=== PATIENT | female | born 1965 | race Caucasian/White ===

== ENCOUNTER → 2019-12-13 17:15 | Outpatient (CLI) | payer OTHER, SELFPAY | PROVIDERS: Visit Provider Nurse Practitioner Family | DX: N39.0 Urinary tract infection, site not specified (principal) | CPT/HCPCS: 87086; 87088; 87186 ==

== ENCOUNTER 2020-10-17 10:56 | Emergency (ER) | payer OTHER, SELFPAY ==
[2020-10-17 10:57] VITALS: BP 138/98; PULSE 83; RESP 18; TEMP 36.9; O2SAT 100; BMI 40.0
[2020-10-17 11:20] VITALS: BP 138/98; PULSE 85; O2SAT 100
[2020-10-17 11:45] VITALS: BP 143/89; PULSE 77; O2SAT 98
--- NOTE | 2020-10-17 11:45 | CT_ITS ---
PROCEDURE: CT ABDOMEN PELVIS WO CON CLINICAL INDICATION: Right flank pain COMPARISON: No exams were available for comparison TECHNIQUE: Axial images obtained with sagittal and coronal reformats. All CT scans at the facility use one or more dose reduction, viz: automated exposure control, ma/kV adjustment per patient size (including targeted exams where dose is matched to indication, i.e. head), or iterative reconstruction technique. FINDINGS: LOWER THORAX: No acute finding ABDOMEN & PELVIS: The liver, spleen, gallbladder, adrenal glands, and pancreas have an unremarkable appearance. No renal or ureteral calculi. No hydronephrosis. No intestinal obstruction or free air. No evidence of appendicitis or diverticulitis. There are some nondistended fluid-filled loops of small bowel. There has been a prior hysterectomy. There is some thickening of the subcutaneous tissues in the right lower quadrant possibly due to recent injections. Prior kyphoplasty at L1 with loss of height anteriorly of 25 percent without retropulsion. IMPRESSION: No acute intra-abdominal or pelvic findings. Dictated by: Mingo Gimenez MD 10/17/2020 12:24 Mingo Gimenez MD in [place] 10/17/2020 12:24
[2020-10-17 12:01] VITALS: BP 132/78
--- NOTE | 2020-10-17 14:36 | HMH.EDGENADL ---
ED Disposition Clinical Impression: Right flank pain Disposition: Home, Self-Care Condition on Discharge: Good Prescriptions: methocarbamoL [Methocarbamol 500mg Tablet] 1,000 mg PO TID 30 Days #30 tab Transmission Status: Received by [id number] Referrals: Vazquez Choi MD [Primary Care Provider] - - Critical Care Critical Care Time: No Attestation: On 10/17/20, the high probability of a clinically significant, sudden or life threatening deterioration of the following system(s) required my full and direct attention, intervention and personal management. The time I documented below is in addition to time spent performing reported procedures but includes the following listed in this critical care notation. Medical Decision Making - Medical Records Medical records reviewed: Yes: I reviewed the patient's medical records. - [place] Inquiry Pt receiving controlled substance: No Vital Signs: 10/17/20 10:57 10/17/20 11:20 10/17/20 11:45 Temperature 98.4 F Temperature Source Oral Pulse Rate 85 77 Pulse Rate [Right Radial] 83 Respiratory Rate 18 Blood Pressure 138/98 H 143/89 H Blood Pressure [Right Arm] 138/98 H Blood Pressure Mean Blood Pressure Mean [Right Arm] 111 Blood Pressure Source Blood Pressure Source [Right Arm] Automatic Cuff Blood Pressure Position Blood Pressure Position [Right Arm] Sitting 02 Sat by Pulse Oximetry 100 100 98 Oxygen Delivery Method Room Air 10/17/20 12:01 10/17/20 14:59 Temperature 98.4 F Temperature Source Oral Pulse Rate 71 Pulse Rate [Right Radial] Respiratory Rate 18 Blood Pressure 132/78 140/71 Blood Pressure [Right Arm] Blood Pressure Mean 96 Blood Pressure Mean [Right Arm] Blood Pressure Source Automatic Cuff Blood Pressure Source [Right Arm] Blood Pressure Position Sitting Blood Pressure Position [Right Arm] 02 Sat by Pulse Oximetry Oxygen Delivery Method Room Air Orders (Tests/Meds): ED MEDICATIONS Discontinued Medications Generic Name Dose Route Start Last Admin Trade Name Freq PRN Reason Stop Dose Admin Oxycodone HCl 5 mg 10/17/20 11:45 Oxycodone 5mg Immediate Release Tablet PO 11/16/20 11:44 Q4HP PRN Severe Pain Medical Decision Narrative: Pt to the ED today for further evaluation of right sided flank pain. DDx includes cholycystitis, UTI, pyelo, post traumatic pain, shingles, MSK pain. Pt is well appearing on initial eval with no evidence of peritonism and no lower abdominal or suprapubic pain. No CVA tenderness and no rash consistent with shingles. CT stone protocol ordered. On radiologist interperitation of the film there is no evidence of nephrolithiasis, although they did note a small area of subcutaneous stranding consistent with injections which the patient does not take. This could represent some bruising under the skin or less likely infection, but there really is nothing on exam to account for that. Pt could be also having post traumatic pain or spinal nerve root compression as her pain does seem to line up with a dermatomal pattern. I have given 5mg oral oxycodone and will write for muscle relaxer to take at home. pt encouraged to followup with PCP for further evaluation of this and long-term pain control. Plan and results discussed with the patient. She is well appearing at time of DC and given return precautions to return to the ED with any new or worsening symptoms. General Adult HPI - General Chief complaint: PAIN Stated complaint: rt side pain Time Seen by Provider: 10/17/20 11:45 Mode of Arrival: Ambulatory Limitations: No Limitations Description of Symptoms (Recalled from ER Triage Doc. by RN): Pt c/o rt side back pain x1 week that has since been radiating into her rt side. Pt advises that it's worse with movement. - History of Present Illness HPI narrative: 85-year-old female presents the ED today for right-sided flank pain. Patient states that
[2020-10-17 14:59] VITALS: BP 140/71; PULSE 71; RESP 18; TEMP 36.9; O2SAT 100
== END 2020-10-17 15:00 | disposition home or self-care (01) ==
PROVIDERS: Emergency Provider Student in an Organized Health Care Education/Training Program; PCP Family Medicine
DX: R10.11 Right upper quadrant pain (principal); E11.9 Type 2 diabetes mellitus without complications; F41.9 Anxiety disorder, unspecified; E03.9 Hypothyroidism, unspecified; M81.0 Age-related osteoporosis without current pathological fracture; Z79.899 Other long term (current) drug therapy
CPT/HCPCS: 74176; 99282

== ENCOUNTER → 2020-10-29 14:44 | Outpatient (CLI) | payer OTHER, SELFPAY ==
[2020-10-29 18:38] LABS: Basophils # 0.1 K/mm3 (0-0.2); Eosinophils # 0.4 K/mm3 (0.0-0.4); Eosinophils % 7.3 % (0.1-12.0); Hematocrit 41.4 % (37.0-47.0); Hemoglobin 13.2 g/dL (12.2-16.2); Lymphocytes # 1.4 K/mm3 (0.7-4.5); Lymphocytes % 24.5 % (10-50); Mean Corpuscular Hemoglobin 29.7 pg (27.0-31.2); Mean Corpuscular Volume 92.9 fl (81-99); Mean Platelet Volume 8.7 fl (7.4-10.4); Monocytes # 0.5 K/mm3 (0.1-1.0); Monocytes % 8.1 % (1.7-9.3); Neutrophils # 3.4 K/mm3 (1.8-7.8); Neutrophils % 59.2 % (37.0-80.0); Platelet Count 285 K/mm3 (142-424); Red Blood Count 4.45 M/mm3 (4.20-5.40); Red Cell Distribution Width 13.6 % (11.5-17.5); White Blood Count 5.8 K/mm3 (4.8-10.8)
[2020-10-29 18:46] LABS: Alanine Aminotransferase 21 U/L (12-78); Albumin Level 3.7 g/dl (3.5-5.0); Albumin/Globulin Ratio 1.3 (1.1-1.8); Alkaline Phosphatase 81 U/L (38-126); Anion Gap 11.5 mEq/L (5-15); Aspartate Amino Transferase 32 U/L (14-36); Bilirubin,Total 0.4 mg/dl (0.2-1.3); Blood Urea Nitrogen 13 mg/dl (7-17); Calcium 8.8 mg/dl (8.4-10.2); Carbon Dioxide 29 mmol/L (22.0-30.0); Chloride 106 mmol/L (98-107); Chol/HDL Ratio 3.6 (1-3.5); Cholesterol 171 mg/dl (140-200); Estimated Glomerular Filt Rate 104 ml/min (>60); GFR (African American) 126 ML/MIN (>60); Globulin 2.8 g/dL (1.3-3.2); Glucose 110 mg/dl (74-100); HDL Cholesterol 47 mg/dl (40-60); Potassium 4.5 mmoL/L (3.5-5.1); Sodium 142 mmol/L (136-145); Total Protein,Serum 6.5 g/dl (6.3-8.2); Triglycerides 85 mg/dl (30-150); VLDL Cholesterol 17 mg/dL (0-40)
[2020-10-29 19:59] LABS: Hemoglobin A1C 5.6 % (4.0-6.0)
== END ==
PROVIDERS: Visit Provider Family Medicine
DX: Z01.818 Encounter for other preprocedural examination (principal)
CPT/HCPCS: 80053; 80061; 83036; 84443; 85025

== ENCOUNTER 2023-02-19 11:48 | Emergency (ER) | payer OTHER, SELFPAY ==
--- NOTE | 2023-02-19 12:17 | EXP.UTC ---
Discharge Plan Disposition Patient Disposition: Home, Self-Care Condition: Good Prescriptions Prescriptions: New benzonatate [benzonatate] 100 mg capsule 100 mg PO TIDP PRN (Reason: Cough) Qty: 30 0RF methylprednisolone 4 mg Tablets,Dose Pack 4 mg PO DIRECTED 6 Days Qty: 21 0RF Rx Instructions: Take 1 pack as directed for 6 days amoxicillin-pot clavulanate 875-125 mg Tablet 1 tab PO Q12H Qty: 20 0RF No Action Ozempic 1 mg/dose (2 mg/1.5 mL) pen injector 1 mg SQ QWEEK hydroxychloroquine 200 mg tablet 200 mg PO BID levothyroxine [Synthroid] 100 mcg tablet 100 mcg PO DAILY folic acid 1 mg tablet 1 mg PO DAILY mecobalamin (vitamin B12) 5,000 mcg lozenge 5,000 mcg PO DAILY Rx Instructions: allow to dissolve in mouth OR may chew lightly before swallowing duloxetine 60 mg capsule,delayed release(DR/EC) 120 mg PO DAILY K2 Plus D3 1,000-100 unit-mcg tablet 1 tab PO DAILY pantoprazole [Protonix] 20 mg tablet,delayed release (DR/EC) 20 mg PO DAILY metoprolol tartrate 25 mg tablet See Rx Instructions .ROUTE .COMPLEX Qty: 180 3RF Dose Instruction: TAKE 1 TABLET BY MOUTH TWICE A DAY Rx Instructions: TAKE 1 TABLET BY MOUTH TWICE A DAY Referrals Follow up/Referrals: Vazquez Choi MD [Primary Care Provider] - See instructions Activity Restrictions/Add. Instructions Additional Instructions/Restrictions: Drink plenty of fluids. Take tylenol or ibuprofen for pain or fever. Take the medications as directed. Follow up with your regular doctor. GO TO THE ER FOR ANY WORSENING SYMPTOMS Clinical Impressions Clinical Impression: Acute bronchitis Instructions Patient Instructions: Acute Bronchitis, DI for Acute Bronchitis Discharge ED Provider: Juan Montenegro [facility] [place], [place] HPI General Stated complaint: Congestion, SOA Time Seen by Provider: 02/19/23 12:17 History of Present Illness Provider Complaint: She states that for the past 5 days she has been having worsening chest and sinus congestion. She is coughing up yellowish sputum. She denies any fever/chills/body aches. She denies any shortness of breath. Related Data Home Medications Medication Instructions Recorded Confirmed cholecalciferol (vit D3) 1,000 1 tab PO DAILY 10/18/19 02/19/23 unit-vitamin K2 (MK4) 100 mcg tablet (K2 Plus D3) duloxetine 60 mg capsule,delayed 120 mg PO DAILY 10/18/19 02/19/23 release folic acid 1 mg tablet 1 mg PO DAILY 10/18/19 10/29/20 hydroxychloroquine 200 mg tablet 200 mg PO BID 10/18/19 02/19/23 levothyroxine 100 mcg tablet 100 mcg PO DAILY 10/18/19 02/19/23 (Synthroid) mecobalamin (vitamin B12) 5,000 5,000 mcg PO DAILY 10/18/19 10/29/20 mcg lozenge pantoprazole 20 mg tablet,delayed 20 mg PO DAILY 10/18/19 02/19/23 release (Protonix) semaglutide 1 mg/dose (2 mg/1.5 1 mg SQ QWEEK 10/18/19 02/19/23 mL) subcutaneous pen injector ([id number] Previous Rx's Medication Instructions Recorded metoprolol tartrate 25 mg tablet See Rx Instructions .Route 12/26/22 .COMPLEX #180 tabs amoxicillin 875 mg-potassium 1 tab PO Q12H #20 tabs 02/19/23 clavulanate 125 mg tablet benzonatate 100 mg capsule 100 mg PO TIDP PRN Cough #30 caps 02/19/23 methylprednisolone 4 mg tablets in 4 mg PO DIRECTED 6 days #21 tabs 02/19/23 a dose pack Allergies Allergy/AdvReac Type Severity Reaction Status Date / Time clarithromycin [From Biaxin] AdvReac Severe Hives Verified 02/19/23 12:45 sumatriptan [From Imitrex] AdvReac Severe Anaphylaxis Verified 02/19/23 12:45 [facility] Disclaimer: The information contained in this section may have been updated after the patient was seen, as this information can be updated by other users. Social History Smoking Status: Never smoker alcohol intake: never substance use type: denies use current occupational status: disabled Travel in the last 8 weeks: None household members: spouse housing: house ROS Obtained: Yes All systems reviewed & no additional complaints except as documented Constitutional Constitutional: Reports poor appetite Eyes Eyes: Reports system reviewed and no additional complaints, except as documented ENT Ears, Nose, Mouth, and Throat: Reports as per HPI Cardiovascular Cardiovascular: Reports system reviewed and no additional complaints, except as documented and Denies chest pain Respiratory Respiratory: Denies shortness of breath, Reports chest congestion, Reports cough, Denies stridor and Denies wheezing Gastrointestinal Gastrointestingal: Reports system reviewed and no additional complaints, except as documented; Denies abdominal pain, diarrhea or vomiting Musculoskeletal Musculoskeletal: Reports system reviewed and no additional complaints, except as documented and Denies arthralgias Integumentary/Breasts Skin/Breast: Reports system reviewed and no additional complaints, except as documented and Denies rash Neurologic Neurologic: Denies paresthesias Allergic/Immunologic Allergic/Immunologic: Denies wheezing Physical Exam General General appearance: alert and in no apparent distress Eye Eye exam: Present normal appearance, PERRL and EOMI ENT ENT exam: Present mucous membranes moist and normal external ear exam Expanded ENT Exam External ear exam: Present normal external inspection TM/Canal exam: Bilateral TM: erythema and bulging Nose exam: Absent sinus tenderness Nasal speculum exam: Bilateral: normal Mouth exam: Present normal external inspection; Absent drooling Teeth exam: Present normal inspection Throat exam: Present tonsillar erythema and tonsillomegaly Neck Neck exam: Present normal inspection, full ROM and trachea midline; Absent tenderness, lymphadenopathy or thyromegaly Chest Chest inspection: Present normal inspection and symmetric chest wall rise; Absent tenderness or rash Respiratory Respiratory exam: Present normal lung sounds bilaterally; Absent respiratory distress, wheezes, stridor or accessory muscle use Cardiovascular Cardiovascular exam: Present regular rate, normal rhythm and normal heart sounds Abdominal Exam Abdominal exam: Present soft; Absent distention, tenderness, guarding, rebound or rigidity Extremities Exam Extremities exam: Present normal inspection, full ROM and normal capillary refill; Absent tenderness or calf tenderness Back Exam Back exam: Present normal inspection and full ROM; Absent tenderness Neurological Exam Neurological exam: Present alert and oriented X3 Psychiatric Psychiatric exam: Present normal affect and normal mood Skin Skin exam: Present warm, dry, intact and normal color Lymphatic Lymphatic Findings: no adenopathy Medical Decision Making Medical Records Medical records reviewed: No I reviewed the patient's medical records. [place] Inquiry Pt receiving controlled substance: No Lab Data Lab results reviewed: Yes I reviewed the patient's lab results. Radiology Data #1: Image(s): Chest Image Reviewed: Yes I reviewed the patient's radiology image and Yes I have reviewed radiologist's interpretation Preliminary Findings: Abnormal FINAL REPORT CLINICAL HISTORY: SOA FINDINGS: TWO-VIEW CHEST The heart size is normal. The mediastinum is normal. There are right base opacities consistent with pneumonia. There is no pneumothorax. IMPRESSION: Right base pneumonia. Reviewed, Interpreted and Dictated by Dakota Umana III, MD Transcribed by Teresa Coulter Authenticated and [facility]
--- NOTE | 2023-02-19 12:22 | XR_ITS ---
FINAL REPORT CLINICAL HISTORY: SOA FINDINGS: TWO-VIEW CHEST The heart size is normal. The mediastinum is normal. There are right base opacities consistent with pneumonia. There is no pneumothorax. IMPRESSION: Right base pneumonia. Reviewed, Interpreted and Dictated by Dakota Umana III, MD Transcribed by Teresa Coulter Authenticated and [facility]
[2023-02-19 12:30] VITALS: BP 133/72; PULSE 85; RESP 18; TEMP 37.1; O2SAT 95; BMI 41.5
[2023-02-19 13:17] VITALS: BP 133/72; PULSE 85; RESP 18; TEMP 37.1; O2SAT 95
== END 2023-02-19 13:17 | disposition home or self-care (01) ==
PROVIDERS: Emergency Provider Nurse Practitioner Family; PCP Family Medicine
DX: J18.9 Pneumonia, unspecified organism (principal); R09.81 Nasal congestion; R09.89 Other specified symptoms and signs involving the circulatory and respiratory systems; R06.02 Shortness of breath
CPT/HCPCS: 71046; 87635; 99204; 99212; G0463

== ENCOUNTER 2024-06-14 11:55 | Outpatient (CLI) | payer OTHER, SELFPAY ==
[2024-06-14 18:35] LABS: Creatinine,Urine Random 202 mg/dL (Not Estab.)
[2024-06-14 18:40] LABS: Microalbumin/Creatinine Ratio 3.3
[2024-06-14 18:47] LABS: Lyme Ab IgM CIA ND; Lyme IgG CIA ND
[2024-06-14 19:27] LABS: Basophils # 0.1 K/mm3 (0-0.2); Basophils % 0.7 % (0.1-2.0); Eosinophils # 0.3 Kmm3 (0.0-0.4); Eosinophils % 4.1 % (0.1-12.0); Hematocrit 42.2 % (37.0-47.0); Hemoglobin 13.5 g/dL (12.2-16.2); Lymphocytes # 1.4 K/mm3 (0.7-4.5); Lymphocytes % 19.1 % (10-50); Mean Corpuscular Hemoglobin 28.1 pg (27.0-31.2); Mean Corpuscular Volume 87.9 fl (81-99); Mean Platelet Volume 10.8 fl (7.4-10.4); Monocytes # 0.5 K/mm3 (0.1-1.0); Monocytes % 6.8 % (1.7-9.3); Neutrophils # 5.2 K/mm3 (1.8-7.8); Neutrophils % 69.2 % (37.0-80.0); Nucleated Red Blood Cells # 0 10^3/uL; Nucleated Red Blood Cells % 0 %; Platelet Count 298 K/mm3 (142-424); Red Cell Distribution Width 14.7 % (11.5-17.5); Red Cell Distribution Width-SD 47.8 fL; White Blood Count 7.5 K/mm3 (4.8-10.8)
[2024-06-14 19:42] LABS: Albumin Level 3.5 g/dl (3.5-5.0); Albumin/Globulin Ratio 1.3 (1.1-1.8); Alkaline Phosphatase 91 U/L (38-126); Anion Gap 9.3 mEq/L (5-15); Bilirubin,Total 0.3 mg/dl (0.2-1.3); Blood Urea Nitrogen 13 mg/dl (7-17); Calcium 8.7 mg/dl (8.4-10.2); Carbon Dioxide 27 mmol/L (22.0-30.0); Chloride 109 mmol/L (98-107); Estimated Glomerular Filt Rate 103 ml/min (>60); GFR (African American) 124 ML/MIN (>60); Globulin 2.8 g/dL (1.3-3.2); Glucose 111 mg/dl (74-100); Potassium 4.3 mmoL/L (3.5-5.1); Sodium 141 mmol/L (136-145); Total Protein,Serum 6.3 g/dl (6.3-8.2)
[2024-06-14 19:44] LABS: Alanine Aminotransferase 16 U/L (12-78); Aspartate Amino Transferase 22 U/L (14-36)
[2024-06-14 19:47] LABS: C-Reactive Protein 23.2 mg/L (0-4)
[2024-06-14 19:53] LABS: 25-OH Vitamin D, Total 43.6 ng/mL (30-100)
[2024-06-14 19:55] LABS: Hemoglobin A1C 5.6 % (4.0-6.0)
[2024-06-14 20:04] LABS: Free T4 (Free Thyroxine) 1.32 ng/dl (0.78-2.19)
[2024-06-14 20:10] LABS: Thyroid Stimulating Hormone 0.39 uIU/mL (0.465-4.68)
[2024-06-14 20:16] LABS: Erythrocyte Sedimentation Rate 26 mm/hr (0-30)
[2024-06-14 20:29] LABS: Vitamin B12 401 pg/mL (239-931)
[2024-06-14 21:31] LABS: HIV Combo NEGATIVE (Negative)
[2024-06-14 21:40] LABS: Hepatitis C Ab Qual. W/ RFX NEGATIVE (Negative)
[2024-06-16 16:12] LABS: Lyme Ab CIA Negative (Negative)
== END 2024-06-14 23:59 | disposition home or self-care (01) ==
LOC: LAB.DROPOF 06-16 12:50
PROVIDERS: PCP Nurse Practitioner; Visit Provider Nurse Practitioner
DX: E03.9 Hypothyroidism, unspecified (principal); E11.9 Type 2 diabetes mellitus without complications; I10 Essential (primary) hypertension; Z13.0 Encounter for screening for diseases of the blood and blood-forming organs and certain disorders involving the immune mechanism; W57.XXXA Bitten or stung by nonvenomous insect and other nonvenomous arthropods, initial encounter
CPT/HCPCS: 80053; 82043; 82306; 82570; 82607; 83036; 84439; 84443; 85025; 85651; 86140; 86618; 86803; 87389